=== PATIENT | female | born 1970 | race Caucasian/White ===

== ENCOUNTER 2023-07-19 14:11 | Day surgery (SDC) | payer OTHER ==
[2023-07-19] MEDS ORDERED: Depo-Medrol 40 MG/ML IM ONE (14:12)
[2023-07-19] MEDS ORDERED: BUPIVACAINE 0.5% VIAL IJ ONE (14:12)
[2023-07-19 15:10] LABS: HCG URINE TEST NEGATIVE (NEGATIVE)
[2023-07-19] MEDS ORDERED: DIPRIVAN 200 MG/20 ML IV ONE (16:40)
[2023-07-19] MEDS ORDERED: Xylocaine-Mpf 2% 5 Ml Vial ONE (16:42)
[2023-07-19] MEDS ORDERED: Lactated Ringers 1,000 ML IV ONE (17:25)
--- NOTE | 2023-07-19 21:00 | XRAY ---
Indication: Bilateral SI joint injection Intraoperative fluoroscopy provided for 32 seconds. 2 digital spot image submitted for interpretation demonstrates posterior needle tips projecting over the expected left and right SI joints. Small amount of contrast injected for needle tip placement. Correlate with intraoperative findings/report.
--- NOTE | 2023-07-20 08:57 | XRAY ---
32 seconds of fluoroscopy was used in surgery for a bilateral sacroiliac joint injection.
== END 2023-07-19 17:13 | disposition home or self-care (01) ==
LOC: SDC-PAIN 14:11
PROVIDERS: ATTEND Psychiatry & Neurology Pain Medicine
DX: M46.1 Sacroiliitis, not elsewhere classified (principal)
CPT/HCPCS: 27096; 72202; 77002; 81025; J1010; J2704; Q9966; G0260